=== PATIENT | female | born 2000 | race Caucasian/White ===

== ENCOUNTER 2021-06-04 19:53 | Emergency (ER) | payer OTHER ==
[~2021-06-04] VITALS: Ht 152.4 cm; Wt 56.8 kg
[2021-06-04] MEDS ORDERED: HYDROCORTISONE 1% 30 GM OINTMENT TP ONE (21:15)
[2021-06-04 21:52] VITALS: BP 120/81
== END 2021-06-04 22:00 | disposition home or self-care (01) ==
LOC: EMS 20:00
DX: L30.9 Dermatitis, unspecified (principal); F17.210 Nicotine dependence, cigarettes, uncomplicated; F14.90 Cocaine use, unspecified, uncomplicated; F12.90 Cannabis use, unspecified, uncomplicated
CPT/HCPCS: 99282; Z7502; Z7610